=== PATIENT | female | born 1995 | race Hispanic/Latino ===

== ENCOUNTER 2020-10-18 22:38 | Inpatient (IN) | payer MEDICAID ==
[~2020-10-18] VITALS: Ht 157.5 cm; Wt 93.0 kg
[2020-10-18] MEDS ORDERED: LACTATED RINGERS 500 ML 500 ML IV PRN (22:45)
[2020-10-18] MEDS ORDERED: NALOXONE HCL 0.4 MG/1 ML ML IV PRN (22:45)
[2020-10-18] MEDS ORDERED: MEPERIDINE-PF 50 MG/ML SYG IVP PRN (22:45)
[2020-10-18] MEDS ORDERED: PROMETHAZINE HCL 25 MG/ML 1ML AMPULE IM PRN (22:45)
[2020-10-18] MEDS ORDERED: ROPIVACAINE 0.2% 100ML VIAL 100 ML EP SCH (22:45)
[2020-10-18] MEDS ORDERED: EPHEDRINE SULFATE 50 MG/ML AMPULE IVP PRN (22:45)
[2020-10-18 23:41] LABS: APPEARANCE,URINE Turbid (CLEAR); BILIRUBIN,URINE Negative (NEGATIVE); COLOR,URINE Yellow (YELLOW); GLUCOSE, URINE (UA) Negative (NEGATIVE); KETONES,URINE Negative (NEGATIVE); LEUKOCYTE ESTERASE ,URINE Large (NEGATIVE); NITRATE,URINE Negative (NEGATIVE); OCCULT BLOOD,URINE Moderate (NEGATIVE); PROTEIN,URINE Negative (NEGATIVE)
[2020-10-18] MEDS: LACTATED RINGERS 1000ML 1,000 ML IV PRN (23:49)
[2020-10-19] LABS: HEMATOCRIT 37.6 % (36-48); MEAN CORPUSCULAR HEMOGLOBIN 24.2 pg (27.0-33.0); MEAN CORPUSCULAR HGB CONC 31.6 g/dL (32.0-36.0); MEAN CORPUSCULAR VOLUME 76.6 fL (79-99); PLATELET COUNT (AUTO) 230 K/uL (130-400); RED BLOOD CELL COUNT(AUTO) 4.91 MIL/uL (4.00-5.50); RED CELL DISTRIBUTION WIDTH 16.4 % (11.0-15.5); WHITE BLOOD COUNT (AUTO) 10.1 K/uL (4.8-10.8)
[2020-10-19 00:08] VITALS: BP 124/78
[2020-10-19 00:55] LABS: AMORPHOUS SEDIMENT,UR Many /LPF (None Seen); BACTERIA,URINE Few /HPF (None Seen)
[2020-10-19] MEDS: LACTATED RINGERS 1000ML 1,000 ML IV PRN ×2 (03:17→10:28)
[2020-10-19] MEDS ORDERED: OXYTOCIN-LR 20 UNITS/1000 ML 1,000 ML IV SCH ×2 (04:00→07:00)
[2020-10-19] MEDS ORDERED: SUCCINYLCHOLINE CHLORIDE 20 MG/ML 10 ML VIAL ONE (12:10)
[2020-10-19] MEDS ORDERED: LIDOCAINE PF 2% 5ML ABBOJECT ONE (12:10)
[2020-10-19] MEDS ORDERED: PROPOFOL 10 MG/ML 20ML VIAL IV ONE (12:10)
[2020-10-19] MEDS ORDERED: FENTANYL CITRATE PF 50 MCG/1 ML 2ML VIAL ONE ×2 (12:11→12:44)
[2020-10-19] MEDS ORDERED: METHYLERGONOVINE MALEATE 0.2 MG/1 ML ML ONE (12:17)
[2020-10-19] MEDS ORDERED: ONDANSETRON HCL 4 MG/2 ML VIAL ONE (12:25)
[2020-10-19] MEDS ORDERED: MEPERIDINE-PF 50 MG/ML SYG ONE (12:25)
[2020-10-19] MEDS ORDERED: CEFAZOLIN SODIUM 1 GM VIAL IVP ONE (12:30)
[2020-10-19] MEDS ORDERED: PROMETHAZINE HCL 25 MG/ML 1ML AMPULE IM PRN (12:45)
[2020-10-19] MEDS ORDERED: OXYTOCIN-LR 20 UNITS/1000 ML 1,000 ML IV PRN (12:45)
[2020-10-19] MEDS ORDERED: MEPERIDINE-PF 75 MG/ML SYG IM PRN (12:45)
[2020-10-19] MEDS ORDERED: SODIUM CHLORIDE 0.9% 10 ML VIAL IVP PRN (12:45)
[2020-10-19] MEDS ORDERED: CALDOLOR 800MG+NS 250ML 250 ML IV ONE (14:56)
[2020-10-19 15:41] VITALS: BP 112/63
[2020-10-19] MEDS ORDERED: PREN-154 PO (15:51)
[2020-10-19 19:36] VITALS: BP 114/59
[2020-10-19] MEDS ORDERED: ACETAMINOPHEN-CODEINE 300/30MG TAB PO PRN (21:00)
[2020-10-19] MEDS ORDERED: DiphenhydrAMINE HCL 50 MG/ML VIAL IM PRN (21:00)
[2020-10-19] MEDS ORDERED: ONDANSETRON HCL 4 MG/2 ML VIAL IVP PRN (21:00)
[2020-10-19] MEDS: CALDOLOR 800MG+NS 250ML 250 ML IV SCH (21:19)
[2020-10-19] MEDS: DEXTROSE 5 %-0.45 % NACL 1,000 ML IV PRN (21:24)
[2020-10-19 23:35] VITALS: BP 112/53
[2020-10-20 03:55] VITALS: BP 116/63
[2020-10-20] MEDS: CALDOLOR 800MG+NS 250ML 250 ML IV SCH (04:52)
[2020-10-20] MEDS: DEXTROSE 5 %-0.45 % NACL 1,000 ML IV PRN (04:52)
[2020-10-20 05:41] LABS: HEMATOCRIT 29.1 % (36-48); MEAN CORPUSCULAR HEMOGLOBIN 24.4 pg (27.0-33.0); MEAN CORPUSCULAR HGB CONC 31.6 g/dL (32.0-36.0); MEAN CORPUSCULAR VOLUME 77.2 fL (79-99); RED BLOOD CELL COUNT(AUTO) 3.77 MIL/uL (4.00-5.50); RED CELL DISTRIBUTION WIDTH 16.6 % (11.0-15.5); WHITE BLOOD COUNT (AUTO) 13.1 K/uL (4.8-10.8)
[2020-10-20 07:17] VITALS: BP 102/55
[2020-10-20 09:12] LABS: HEPATITIS Bs ANTIGEN SCREEN P Negative (Negative)
[2020-10-20] MEDS ORDERED: ACETAMINOPHEN EXTRA STRENGTH 500 MG TABLET PO PRN (09:30)
[2020-10-20] MEDS ORDERED: DOCUSATE SODIUM 100 MG CAP PO SCH (09:30)
[2020-10-20] MEDS ORDERED: LANOLIN 30GM OINTMENT TP PRN (09:30)
[2020-10-20] MEDS ORDERED: HYDROCODONE/ACETAMINOPHEN 5/325 MG TAB PO PRN (09:30)
[2020-10-20] MEDS ORDERED: BISACODYL 10 MG SUPP.RECT RC PRN (09:30)
[2020-10-20] MEDS ORDERED: ACETAMINOPHEN-CODEINE 300/30MG TAB PO PRN (09:30)
[2020-10-20] MEDS: SIMETHICONE 80 MG TAB.CHEW PO PRN ×2 (09:56→14:39)
[2020-10-20] MEDS: IBUPROFEN 800 MG TAB PO SCH ×2 (09:57→16:48)
[2020-10-20 11:35] VITALS: BP 117/72
[2020-10-20] MEDS ORDERED: IBUPROFEN 800 MG TAB PO SCH (12:45)
[2020-10-20 16:24] VITALS: BP 103/56
== END 2020-10-20 18:10 | disposition home or self-care (01) | DRG 540 ==
LOC: LDH 22:38 → WSH 10-19 15:35
PROVIDERS: ADMIT Obstetrics & Gynecology; ATTEND Obstetrics & Gynecology
PROC: 10D00Z1 Extraction of Products of Conception, Low, Open Approach (ICD-10-PCS; principal; 2020-10-19 12:00)
DX: O76 Abnormality in fetal heart rate and rhythm complicating labor and delivery (principal); Z3A.40 40 weeks gestation of pregnancy; Z37.0 Single live birth
CPT/HCPCS: 36415; 59510; 81001; 85027; 86592; 86701; 86850; 86900; 86901; 87088; 87340; 87390; A4314; A4344; G0378; J0330; J0690; J1741; J2001; J2175; J2210; J2405; J2550; J2590; J2704; J3010; J7120

== ENCOUNTER 2021-01-25 06:46 | Day surgery (SDC) | payer MEDICAID ==
[2021-01-22 12:00] VITALS: BP 125/74
[2021-01-22 12:19] LABS: BASOPHILS % (AUTO) 0.3 % (0.0-5.0); EOSINOPHILS % (AUTO) 1.9 % (0.0-8.0); HEMATOCRIT 38.4 % (36-48); LYMPHOCYTES % (AUTO) 22.7 % (21.0-51.0); MEAN CORPUSCULAR HEMOGLOBIN 22.8 pg (27.0-33.0); MEAN CORPUSCULAR HGB CONC 30.5 g/dL (32.0-36.0); MEAN CORPUSCULAR VOLUME 74.9 fL (79-99); MONOCYTES % (AUTO) 4.9 % (3.0-13.0); NEUTROPHILS % (AUTO) 69.9 % (40.0-77.0); PLATELET COUNT (AUTO) 251 K/uL (130-400); RED BLOOD CELL COUNT(AUTO) 5.13 MIL/uL (4.00-5.50); RED CELL DISTRIBUTION WIDTH 14.6 % (11.0-15.5); WHITE BLOOD COUNT (AUTO) 6.8 K/uL (4.8-10.8)
[2021-01-25] VITALS (18 sets, daily range): BP systolic 104–128; BP diastolic 60–78
[~2021-01-25] VITALS: Ht 157.5 cm; Wt 74.8 kg
[2021-01-25] MEDS: LACTATED RINGERS 1000ML 1,000 ML IV SCH ×3 (07:35→10:12)
[2021-01-25] MEDS: CEFAZOLIN SODIUM 1 GM VIAL IVP ONE ×2 (07:35→09:25)
[2021-01-25] MEDS ORDERED: BUPIVACAINE/PF 0.25% 30ML VIAL IJ ONE (08:07)
[2021-01-25] MEDS ORDERED: FENTANYL CITRATE PF 50 MCG/1 ML 2ML VIAL ONE (09:08)
[2021-01-25] MEDS ORDERED: PROPOFOL 10 MG/ML 20ML VIAL IV ONE (09:08)
[2021-01-25] MEDS ORDERED: ROCURONIUM 10MG/1ML SYR 10 MG/ML ML ONE (09:08)
[2021-01-25] MEDS ORDERED: LIDOCAINE PF 2% 5ML ABBOJECT ONE (09:08)
[2021-01-25] MEDS ORDERED: SUCCINYLCHOLINE CHLORIDE 20 MG/ML 10 ML VIAL ONE (09:08)
[2021-01-25] MEDS ORDERED: KETOROLAC TROMETHAMINE 30MG/ML ONE (09:50)
[2021-01-25] MEDS ORDERED: MEPERIDINE-PF 25 MG/ML SYG ONE ×3 (09:50→10:27)
[2021-01-25] MEDS ORDERED: ONDANSETRON HCL 4 MG/2 ML VIAL ONE (09:50)
== END 2021-01-25 11:55 | disposition home or self-care (01) ==
LOC: DAH 06:46
PROVIDERS: ATTEND Obstetrics & Gynecology
DX: Z30.2 Encounter for sterilization (principal); Z64.1 Problems related to multiparity; Z79.899 Other long term (current) drug therapy; Z20.822 Contact with and (suspected) exposure to COVID-19
CPT/HCPCS: 36415; 58671; 84703; 85025; 86850; 86900; 86901; A4215; A4223; A4264; A4351; A4510; A4600; A4606; A6260; C1769 ×3; C9803; G0168; J0330; J0690; J1885; J2001; J2175 ×2; J2405; J2704; J3010; J3490; J7120; U0003